=== PATIENT | female | born 1960 | race Caucasian/White ===

== ENCOUNTER → 2016-10-05 | Outpatient (CLI) | payer OTHER ==
[2016-10-05 08:32] LABS: Basophils # (A) 0.1 k/uL (0-0.2); Basophils % (A) 1 %; CH 31.8; CHCM 35.6; Eosinophils # (A) 0.2 k/uL (0-0.7); Eosinophils % (A) 3 %; HCT 40.2 % (34.0-46.0); HGB 14.2 gm/dL (11.4-16.0); Luc % (Auto) 1; Lymphocytes # (A) 1.9 k/uL (1.0-4.8); Lymphocytes % (A) 28 %; MCH 31.7 pg (25.0-35.0); MCHC 35.3 g/dL (31.0-37.0); MCV 89.6 fL (80.0-100.0); Mean Platelet Volume 7.7; Monocytes # (A) 0.2 k/uL (0-1.0); Monocytes % (A) 3 %; Neutrophils # (A) 4.3 k/uL (1.3-7.7); Neutrophils % (A) 64 %; RBC 4.49 m/uL (3.80-5.40); WBC 6.8 k/uL (3.8-10.6); WBC (Perox) 6.92
[2016-10-05 10:29] LABS: Erythrocyte Sedimentation Rate 39 mm/hr (0-20)
[2016-10-05 10:57] LABS: C Reactive Protein 8.8 mg/L (<10.0); Cholesterol 265 mg/dL (<200); Creatine Kinase 84 U/L (30-135); HDL Cholesterol 53 mg/dL (40-60); Rheumatoid Factor, Qnt <9 IU/mL (<12); Triglycerides 502 mg/dL (<150)
[2016-10-05 17:18] LABS: ANA w/Reflex to Titer NEGATIVE (NEGATIVE)
[2016-10-06 12:13] LABS: Alternaria alternata IgE <0.35 kU/L (<0.35); Asperg. fumagatus IgE <0.35 kU/L (<0.35); Asperg. fumagatus IgE Class CLASS 0; Birch(Com.Silvr) IgE Class CLASS 0; Cat Epith & Dander IgE <0.35 kU/L (<0.35); Cat Epith & Dander IgE Class CLASS 0; Clad herbarum IgE <0.35 kU/L (<0.35); Clad herbarum IgE Class CLASS 0; Common Ragweed IgE Class CLASS 0; Dermato. Pteronyssinus Class CLASS 0; Dermato. Pteronyssinus IgE <0.35 kU/L (<0.35); Dermato. farinae IgE <0.35 kU/L (<0.35); Dermato. farinae IgE Class CLASS 0; IgE (Allergen) 62.7 IU/mL (<114.0); Maple (Box Elder) IgE 2.09 kU/L (<0.35); Maple (Box Elder) IgE Class CLASS II; Mountain Cedar IgE <0.35 kU/L (<0.35); Mountain Cedar IgE Class CLASS 0; Mouse Urine IgE Class CLASS 0; Mouse Urine Proteins,IgE <0.35 kU/L (<0.35); Mulberry IgE Class CLASS 0; Nettle IgE <0.35 kU/L (<0.35); Nettle IgE Class CLASS 0; Oak IgE <0.35 kU/L (<0.35); Penicillium notatum IgE Class CLASS 0; Rough Marshelder IgE <0.35 kU/L (<0.35); Rough Marshelder IgE Class CLASS 0; Timothy Grass IgE <0.35 kU/L (<0.35); Timothy Grass IgE Class CLASS 0; White Ash IgE Class CLASS 0
== END | disposition home or self-care (01) ==
LOC: LABWHC1 07:26
PROVIDERS: ATTEND Internal Medicine
DX: Z00.00 Encounter for general adult medical examination without abnormal findings (principal); D64.9 Anemia, unspecified; E78.5 Hyperlipidemia, unspecified; E55.9 Vitamin D deficiency, unspecified; M35.9 Systemic involvement of connective tissue, unspecified; M81.0 Age-related osteoporosis without current pathological fracture; F17.200 Nicotine dependence, unspecified, uncomplicated
CPT/HCPCS: 36415; 80061; 82306; 82550; 82785; 84443; 85025; 85652; 86003; 86038; 86140; 86225; 86431

== ENCOUNTER → 2016-10-05 | Outpatient (CLI) | payer OTHER ==
[2016-10-05 08:39] LABS: Partial Thromboplastin Time 21.4 sec (22.0-30.0); Prothrombin Time 10.1 sec (9.0-12.0)
[2016-10-05 08:44] LABS: Appearance,Urine Cloudy (Clear); Bilirubin,Urine Negative (Negative); Glucose,Urine (UA) Negative (Negative); Ketones,Urine Negative (Negative); Leukocyte Esterase,Urine Small (Negative); Nitrite,Urine Negative (Negative); Particle Count 10049; Protein,Urine Negative (Negative); Specific Gravity,Urine 1.016 (1.001-1.035); Squamous Epithelial Cell,Urine 1 /hpf (0-4); UA Billing (MACRO vs. MICRO) MICRO; Urobilinogen,Urine <2.0 mg/dL (<2.0)
[2016-10-05 08:45] LABS: ALT 24 U/L (9-52); AST 20 U/L (14-36); Alkaline Phosphatase 104 U/L (38-126); Anion Gap 11 mmol/L; Blood Urea Nitrogen 21 mg/dL (7-17); Calcium 9.4 mg/dL (8.4-10.2); Carbon Dioxide 24 mmol/L (22-30); Chloride 107 mmol/L (98-107); Glucose 97 mg/dL (74-99); Non-African American GFR(MDRD) >60 (>60 ml/min/1.73 sqM); Potassium 4.1 mmol/L (3.5-5.1); Sodium 142 mmol/L (137-145); Total Bilirubin 0.5 mg/dL (0.2-1.3); Total Protein 7.5 g/dL (6.3-8.2)
== END | disposition home or self-care (01) ==
LOC: LABPAT 07:28
PROVIDERS: ATTEND Orthopaedic Surgery
DX: Z01.812 Encounter for preprocedural laboratory examination (principal)
CPT/HCPCS: 80053; 81001; 85610; 85730; 87070

== ENCOUNTER 2016-10-19 10:02 | Inpatient (IN) | payer OTHER ==
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
[2016-10-15 16:01] VITALS: BMI 38.9
[~2016-10-19 10:02] MED LIST: ACETAMINOPHEN TAB 500 MG TAB PO ONE; DEXAMETHASONE SOD PHOSPHATE 10 MG/ML 1 ML VIAL IV ONE; HYDROmorphone 1 MG/ML 1 ML SYRINGE IVP PRN; LACTATED RINGERS 1,000 ML IV SCH; MELOXICAM 7.5 MG TAB PO ONE; MIDAZOLAM 2 MG/2 ML VIAL IV PRN; ONDANSETRON 4 MG/2 ML VIAL IVP ONE; ROPIVACAINE 246.25 MG, EPINEPHrine 0.5 MG, KETOROLAC 30 MG, cloNIDine HCL/PF 80 MCG, WA... MISCELLANE ONE; SCOPOLAMINE 1.5MG/72HR PATCH TRANSDERM ONE; TRANEXAMIC ACID 1,000 MG in SODIUM CHLORIDE 0.9% 100 ML IVPB ONE; ceFAZolin 2 GM in SODIUM CHLORIDE 0.9% 100 ML IVPB ONE
[2016-10-19] MEDS ORDERED: LIDOCAINE 1% 20 ML VIAL (10MG/ML) FOR IV START INTRADERMA ONE (10:25)
[2016-10-19] MEDS ORDERED: ROPIVACAINE 1,100 MG, SODIUM CHLORIDE 0.9% 330 ML MISCELLANE PRN ×2 (11:17)
--- NOTE | 2016-10-19 11:19 | P.ONQ ---
Anesthesiology Proc Note - PNB - Peripheral Nerve Block Performed Left Adductor Canal Infusion Time Out Performed: Yes Indication: Acute Post-Operative Pain, Dx/Pain Location (Left Knee) Sedation Type: Sedate with meaningful contact maintained Preparation: Sterile Dressing Position: Supine Catheter: Indwelling Needle Types: Other (see comment) (Adal) Needle Size: 100mm (4") Technique: Ultrasound Injectate: 0.5% Ropivacaine (see comment for volume) (30cc) Blood Aspirated: No Pain Paresthesia on Injection Noted: No Resistance on Injection: Normal Events: Uneventful and Well Tolerated
[2016-10-19] MEDS ORDERED: TRANEXAMIC ACID 1,000 MG/10 ML VIAL ONE (11:55)
[2016-10-19] MEDS ORDERED: LIDOCAINE 1% INJ 10MG/ML (20 ML MDV) ONE (11:55)
[2016-10-19] MEDS ORDERED: MIDAZOLAM 2 MG/2 ML VIAL ONE (11:55)
[2016-10-19] MEDS ORDERED: PROPOFOL 10 MG/ML 20 ML VIAL IV ONE (11:55)
[2016-10-19] MEDS ORDERED: SODIUM CHLORIDE 0.9% 100 ML BAG ONE ×2 (11:55)
[2016-10-19] MEDS ORDERED: ceFAZolin 3,000 MG in SODIUM CHLORIDE 0.9% IRRIGATIO 3,000 ML IRRIGATION ONE (12:37)
[2016-10-19] MEDS ORDERED: LACTATED RINGERS 1,000 ML IV ONE (13:07)
--- NOTE | 2016-10-19 13:27 | P.OP ---
Date of Procedure: 10/19/16 Preoperative Diagnosis: Severe osteoarthritis of the left knee Postoperative Diagnosis: Severe osteoarthritis of the left knee Procedure(s) Performed: Left total knee arthroplasty Implants: Wang and Nephew Oxinium femoral component size 4, left Wang & Nephew Nancy II left nonporous tibial baseplate size 4 Wang [employer] Nephew size 13 mm Legion XLPE dished articular insert, size 3-4 Wang [employer] Nephew Nancy II resurfacing patellar component, 29 mm All components were cemented using Kapil bone cement.. The articulation is ceramic on polyethylene. Anesthesia: spinal Surgeon: Ramirez Flores Kiln Hand #1: Chio Graves Kiln Hand #2: Radha South Estimated Blood Loss (ml): 50 Pathology: other (Bone and cartilage) Condition: stable Disposition: PACU Indications for Procedure: After failure of conservative treatment we discussed the surgical and nonsurgical treatment options at length. Patient wishes to proceed with a total knee arthroplasty. Complications specific to this procedure were discussed at length, including but not limited to infection, bleeding, stiffness , and nerve injury. Patient is aware of all these complications and informed consent was obtained Operative Findings: The operative findings are consistent with severe osteoarthritis of the left knee Description of Procedure: Patient was seen in the preoperative area consent was reviewed and operative site was marked with a skin marker. An adductor canal pain catheter was placed by anesthesia in the preoperative area. Patient was then brought to the operating room and given preoperative antibiotics intravenously. A spinal anesthetic was administered by the anesthesia department. A tourniquet was placed on the upper thigh and the lower extremity was prepped and draped in usual sterile fashion. A gram of transexamic acid was given. A universal timeout was then performed which confirmed the patient's name, surgical site, ALLERGIES, and consent. The lower extremity was then exsanguinated and tourniquet was inflated to 250 mmHg. A standard and anterior midline approach to the knee was performed. The skin and subcutaneous tissue was dissected down to the patellar tendon. A medial parapatellar arthrotomy was then performed. The knee was then extended, the patellar was everted, and the knee was again flexed. Anterior horns of both menisci were excised, and a release was performed to the posterior medial aspect of the knee. On gross visual inspection, there was complete loss of articular cartilage in the medial and patellofemoral joint spaces. There was also significant cartilage damage in the lateral compartment. There were multiple periarticular osteophytes which were then removed with a Ronguer. The femoral canal was then opened with the appropriate drill, and the intramedullary femoral cutting guide was then placed and set for 4 of valgus. The distal femoral cutting block was then pinned in place, and the distal femur was then cut. The cutting block was then removed and the cut was checked for flatness. Next, the sizing guide was then placed and set for 3 external rotation based off of the epicondylar axis and Whitesides line. After the femur was sized, the appropriate 4-in-1 cutting block was then pinned in place. The anterior condyles were cut without notching. The posterior and chamfer cuts were performed while protecting the collateral ligaments. The cutting block was then removed, and the femoral canal was plugged with autologous bone. Attention was then directed to the tibia. The remaining ACL was removed with a Ronguer, and the tibia was then gently subluxed forward with a large bent knee retractor. Any remaining menisci was excised. The posterior lateral corner was cauterized in order to cauterize the lateral geniculate artery. The extra medullary tibial cutting guide was then placed, set for the appropriate rotation , slope, and depth of resection. The proximal tibia cutting guide was then pinned in place. Proximal tibia was then cut and sized. Next trials were then placed with the appropriate-sized insert. The knee was able to fully extend and flex to 130 and was stable throughout all range of motion. The knee was then extended, patella everted. Patella was then measured, and then using an osteotomy guide, the patella was cut at the appropriate level. The patella was then measured and drilled and the patella trial was then placed. The knee was then taken through range of motion with the patella trial and the patella tracked normally. The knee was then extended patella trial was then removed and the patella was everted. Knee was then flexed and lug holes were drilled through the femoral trial and the femoral trial was then removed. The tibial was then exposed, and the tibial broach guide was then pinned in place after it was set for the appropriate rotation to allow for the most coverage without overhang. The tibia was then reamed and broached. The cut surfaces of bone were then irrigated with pulsatile lavage. The posterior structures were injected with the ropivacaine solution. The knee was also irrigated with Irrisept solution. The components were then opened, the cement was mixed, and the components were then cemented in place. The cement was allowed to harden with the knee in full extension. While the cement was hardening, the remaining soft tissues were then injected with a ropivacaine solution, which consisted of 246.25 mg of ropivacaine, 0.5 mg of epinephrine, 30 mg of Toradol, 80 g of clonidine, and 48.45 mL of sterile water, for a total of 100 mL of fluid injected. After the cemented hardened. The tourniquet was released, and hemostasis was obtained. A second gram of transexamic acid was given. The knee was again irrigated. The knee was again taken through range of motion and found to be stable throughout all range of motion of 0-130 , and the patella tracked normally. The fascia was then closed with #2 strata fix suture. The subcutaneous tissue was closed with 3-0 Vicryl and 3-0 strata fix. Dermabond tape was used for the skin and placed with the knee in flexion. The patient was placed in a sterile dressing. Patient was then transferred to recovery room in stable condition. The library media assistant KAMAR Woods was required due the complexity surgery and the need for a skilled talent acquisition assistant. She assisted in positioning, draping , retraction, and closure of the wound.
[2016-10-19] MEDS ORDERED: NA PHOS,M-B/NA PHOS,DI-BA 133 ML ENEMA RECTAL PRN (13:35)
[2016-10-19] MEDS ORDERED: DIAZEPAM 5 MG TAB PO PRN ×2 (13:35)
[2016-10-19] MEDS ORDERED: MAGNESIUM HYDROXIDE 2,400 MG/10 ML CUP PO PRN (13:35)
[2016-10-19] MEDS ORDERED: BISACODYL 10 MG SUPP RECTAL PRN (13:35)
[2016-10-19] MEDS ORDERED: ONDANSETRON 4 MG/2 ML VIAL IVP PRN (13:35)
[2016-10-19] MEDS ORDERED: HYDROcodone/APAP 5-325MG 1 EACH TAB PO PRN (13:35)
[2016-10-19] MEDS ORDERED: HYDROmorphone 1 MG/ML 1 ML SYRINGE IVP PRN ×3 (13:35)
[2016-10-19] MEDS ORDERED: NALOXONE 0.4 MG/ML 1 ML VIAL IV PRN (13:35)
[2016-10-19] MEDS ORDERED: SODIUM CHLORIDE 0.9% 1,000 ML IV SCH (13:45)
--- NOTE | 2016-10-19 14:06 | XR ---
Left knee Limited HISTORY: Status post left knee arthroplasty 2 views of the left knee, no comparisons The patient is status post left knee arthroplasty. Anatomic alignment. The present in the soft tissue s compatible with postop state. IMPRESSION: Orthopedic follow-up.
[2016-10-19] MEDS ORDERED: ALBUTEROL NEBULIZED 2.5 MG/3 ML INHALATION PRN (15:46)
[2016-10-19] MEDS ORDERED: ACETAMINOPHEN TAB 325 MG TAB PO PRN (16:37)
[2016-10-19] MEDS: HYDROcodone/APAP 5-325MG 1 EACH TAB PO PRN ×2 (17:48→23:43)
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
[2016-10-19] MEDS: GABAPENTIN 400 MG CAP PO SCH ×2 (17:52→22:08)
[2016-10-19] MEDS: SODIUM CHLORIDE 0.9% 1,000 ML IV SCH (18:07)
[2016-10-19 20:17] VITALS: RESP 16
[2016-10-19] MEDS: ASPIRIN 325 MG TAB PO SCH (20:20)
[2016-10-19] MEDS: ceFAZolin 2 GM in SODIUM CHLORIDE 0.9% 100 ML IVPB SCH (20:20)
[2016-10-19] MEDS: ATORVASTATIN 80 MG TAB PO SCH (20:21)
[2016-10-19] MEDS: SENNOSIDES-DOCUSATE SODIUM 1 EACH TAB PO SCH (20:21)
[2016-10-19] MEDS: FENOFIBRATE 160 MG TAB PO SCH (20:21)
[2016-10-19] MEDS: hydrOXYzine PAMOATE 25 MG CAP PO PRN (23:43)
[2016-10-20] MEDS: ceFAZolin 2 GM in SODIUM CHLORIDE 0.9% 100 ML IVPB SCH (03:49)
[2016-10-20] MEDS: HYDROcodone/APAP 5-325MG 1 EACH TAB PO PRN ×3 (06:39→18:14)
[2016-10-20] MEDS: hydrOXYzine PAMOATE 25 MG CAP PO PRN ×3 (06:40→18:14)
[2016-10-20 07:24] LABS: Basophils % (A) 0 %; CH 31.3; Eosinophils % (A) 0 %; HCT 36.4 % (34.0-46.0); HDW 2.88; HGB 12.1 gm/dL (11.4-16.0); Luc # (Auto) 0.14; Luc % (Auto) 1; Lymphocytes # (A) 2.3 k/uL (1.0-4.8); Lymphocytes % (A) 22 %; MCH 29.9 pg (25.0-35.0); MCHC 33.3 g/dL (31.0-37.0); MCV 89.6 fL (80.0-100.0); Monocytes # (A) 0.6 k/uL (0-1.0); Monocytes % (A) 6 %; Neutrophils # (A) 7.2 k/uL (1.3-7.7); Neutrophils % (A) 71 %; RBC 4.06 m/uL (3.80-5.40); RDW 13.1 % (11.5-15.5); WBC 10.1 k/uL (3.8-10.6); WBC (Perox) 10.37
[2016-10-20] MEDS: SERTRALINE 50 MG TAB PO SCH ×2 (07:57→07:58)
[2016-10-20] MEDS: PANTOPRAZOLE 40 MG TABLET PO SCH (07:57)
[2016-10-20] MEDS: GABAPENTIN 400 MG CAP PO SCH ×3 (07:58→22:07)
[2016-10-20] MEDS: ASPIRIN 325 MG TAB PO SCH ×2 (07:58→22:06)
[2016-10-20] MEDS: MELOXICAM 7.5 MG TAB PO SCH (07:58)
--- NOTE | 2016-10-20 08:57 | P.PN ---
Subjective Principal diagnosis: Status post total left knee arthroplasty. This is a well-appearing 56-year-old female who is status post total left knee arthroplasty. This is postoperative day #1. Patient was seen and evaluated at bedside with Dr. Ramirez Flores. Patient's pain is under control and she has been up and walking. Patient has no new complaints today. Objective - Vital Signs Vital signs: Vital Signs Temp 97.8 F 10/20/16 07:31 Pulse 69 10/20/16 08:00 Resp 16 10/20/16 07:31 BP 114/75 10/20/16 07:31 Pulse Ox 94 L 10/20/16 07:31 Intake & Output 10/19/16 10/20/16 10/20/16 18:59 06:59 18:59 Intake Total 1201 Output Total 350 Balance 851 Intake: IV 1201 Output: Urine 300 Estimated Blood Loss 50 Other: Voiding Method Toilet Toilet # Voids 1 1 - Exam Vital signs are stable. Patient is in no acute distress and is alert and oriented 3. Calf is soft and nontender. Incision is clean, dry, and intact. Neurovascular status intact. Patient has full foot and ankle motion. Patient is able to ambulate. - Labs CBC & Chem 7: 10/20/16 06:55 Assessment and Plan (1) Hx of total knee arthroplasty Status: Acute (2) Primary osteoarthritis of left knee Status: Acute Plan: #1 continue with routine postoperative care. #2 anticoagulation with aspirin. #3 physical therapy and CPM today. #4 appreciated input from medicine. #5 anticipate discharged home with home care likely tomorrow.
[2016-10-20] MEDS ORDERED: NON-FORMULARY DRUG (Calcium/Magnesium/Zinc [Calcium-Magnesium-Zinc Tablet] 1 TAB) PO SCH (09:00)
[2016-10-20] MEDS ORDERED: CHOLECALCIFEROL 1,000 UNIT TAB PO SCH (12:00)
[2016-10-20] MEDS ORDERED: CYANOCOBALAMIN 500 MCG TAB PO SCH (12:00)
--- NOTE | 2016-10-20 16:16 | P.PN ---
Subjective Dictation on progress note. Date of service 10/20/2016. Dictation by Dr. Nina Mistry [facility]. Patient seen today evaluated. She stated that she went home tomorrow. Orthopedic surgeon. Her left knee doing well no complication she had history of sciatica in the using ice. Otherwise she is comfortable for the planning and discharge. No specific complaint. Exam [id number]. Patient is conscious alert and oriented 3. HEENT: Head was normocephalic atraumatic, pupils equal reactive, oropharynx is negative, Neck: Supple no JVD no thyromegaly no lymphadenopathy trachea midline. Chest: Clear to auscultation and percussion no wheezes no rhonchi. Heart: Regular sinus rhythm and no dysrhythmia no pain of the chest. Abdomen soft positive bowel sounds no tenderness. Extremities: Status post left total knee arthroplasty with no obvious complication. Pulses intact with good perfusion. Neuro: Moving 4 extremities no lateralizing sign. Assessment and plan: Status post left total knee arthroplasty. By Dr. Ramirez dickson. Advanced degenerative osteoarthritis with the previous right total knee arthroplasty. Dyslipidemia and vitamin D insufficiency. She had history of hypertension however she has normotensive on the low side with a change of IV fluid 0.9 normal saline normal saline, her blood pressure improved. Dr. Flores plan for discharge her tomorrow home. Patient should be followed up in the office in 5-7 days post discharge. Objective - Vital Signs Vital signs: Vital Signs Temp 98.2 F 10/20/16 13:57 Pulse 60 10/20/16 13:57 Resp 16 10/20/16 13:57 BP 109/69 10/20/16 13:57 Pulse Ox 95 10/20/16 13:57 Intake & Output 10/19/16 10/20/16 10/20/16 18:59 06:59 18:59 Intake Total 1201 Output Total 350 Balance 851 Intake: IV 1201 Output: Urine 300 Estimated Blood Loss 50 Other: Voiding Method Toilet Toilet # Voids 1 1 1 - Labs CBC & Chem 7: 10/20/16 06:55
[2016-10-20] MEDS: SODIUM CHLORIDE 0.9% 1,000 ML IV SCH (17:57)
--- NOTE | 2016-10-20 18:17 | P.PN ---
Progress Note - Text The patient is status post left adductor canal catheter placement. The catheter was placed for postoperative pain control, status post total left arthroplasty. Ropivacaine 0.2% is infusing at 8 mLs per hour. The patient has no complaints of left lower extremity numbness or weakness. Patient's VAS score is 3-10. Assessment: Patient's adductor canal catheter is in place and working appropriately. Plan: continue infusion and adjust it as needed.
[2016-10-20] MEDS: ATORVASTATIN 80 MG TAB PO SCH (22:06)
[2016-10-20] MEDS: SENNOSIDES-DOCUSATE SODIUM 1 EACH TAB PO SCH (22:07)
[2016-10-20] MEDS: FENOFIBRATE 160 MG TAB PO SCH (22:07)
[2016-10-21] MEDS: HYDROcodone/APAP 5-325MG 1 EACH TAB PO PRN ×2 (02:08→08:12)
[2016-10-21] MEDS: hydrOXYzine PAMOATE 25 MG CAP PO PRN ×2 (02:09→08:11)
[2016-10-21 07:24] VITALS: BP 104/65; PULSE 85; TEMP 98.1
[2016-10-21] MEDS: GABAPENTIN 400 MG CAP PO SCH (08:32)
[2016-10-21] MEDS: ASPIRIN 325 MG TAB PO SCH (08:32)
[2016-10-21] MEDS: PANTOPRAZOLE 40 MG TABLET PO SCH (08:32)
[2016-10-21] MEDS: MELOXICAM 7.5 MG TAB PO SCH (08:32)
--- NOTE | 2016-10-21 08:40 | P.DS ---
Providers Date of admission: 10/19/16 10:02 Expected date of discharge: 10/21/16 Attending physician: Ramirez Flores Consults: 10/19/16 13:35 Consult Physician Routine Consulting Provider: Misael Wood Consult Reason/Comments: medical management Do you want consulting provider notified?: Yes Primary care physician: Misael Wood - Discharge Diagnosis(es) (1) Hx of total knee arthroplasty Current Visit: Yes Status: Acute (2) Primary osteoarthritis of left knee Current Visit: Yes Status: Acute Hospital Course: This is a 56-year-old female with known history of degenerative arthritis of the left knee. The patient presents for evaluation. After discussion and consideration patient elects to proceed with total knee arthroplasty. The patient is seen preoperatively by Dr. Flores and cleared for surgery. Patient is [facility] on 10/19/2016 for total knee arthroplasty. The procedures performed without complication or sequelae. The patient is doing well postoperatively. Labs and vital signs are stable on day of discharge. On day of discharge patient's knee incision is healing well. There is minimal erythema. There is no drainage noted at this time. There is minimal soft tissue swelling to the knee. Patient has full foot and ankle motion without difficulty or pain. Neurovascular status to the left lower extremity is intact. Patient is discharged home in good condition. Please see med rec for accurate list of home medications. Plan - Discharge Summary New Discharge Prescriptions: New Aspirin 325 mg PO BID #60 tab HYDROcodone/APAP 7.5-325MG [Hemlock 7.5-325] 1 - 2 tab PO Q4-6H PRN #60 tab PRN Reason: Pain Sennosides-Docusate Sodium [Senokot-S] 1 tab PO BID #60 tablet No Action Omeprazole 40 mg PO AC-BRKFST Atorvastatin [Lipitor] 80 mg PO HS Sertraline HCl [Zoloft] 50 mg PO DAILY Ibuprofen [Motrin] 800 mg PO Q8HR PRN PRN Reason: Pain Gabapentin [Neurontin] 400 mg PO TID Fenofibrate 160 mg PO HS Meloxicam [Meloxicam] 15 mg PO DAILY Cyanocobalamin [Vitamin B-12] 500 mcg PO DAILY Cholecalciferol [Vitamin D3] 1,000 unit PO DAILY Calcium/Magnesium/Zinc [Oaocbhu-Xkhwmhwds-Vsey Tablet] 1 tab PO DAILY Albuterol Inhaler [Ventolin Hfa Inhaler] 1 - 2 puff INHALATION RT-Q6H PRN PRN Reason: asthma Discharge Medication List Atorvastatin [Lipitor] 80 mg PO HS 10/08/14 [History] Omeprazole 40 mg PO AC-BRKFST 10/08/14 [History] Sertraline HCl [Zoloft] 50 mg PO DAILY 10/08/14 [History] Calcium/Magnesium/Zinc [Jifhnos-Hkuaxqozw-Ewuw Tablet] 1 tab PO DAILY 04/15/16 [ History] Cholecalciferol [Vitamin D3] 1,000 unit PO DAILY 04/15/16 [History] Cyanocobalamin [Vitamin B-12] 500 mcg PO DAILY 04/15/16 [History] Fenofibrate 160 mg PO HS 04/15/16 [History] Gabapentin [Neurontin] 400 mg PO TID 04/15/16 [History] Ibuprofen [Motrin] 800 mg PO Q8HR PRN 04/15/16 [History] Meloxicam [Meloxicam] 15 mg PO DAILY 04/15/16 [History] Albuterol Inhaler [Ventolin Hfa Inhaler] 1 - 2 puff INHALATION RT-Q6H PRN [History] Aspirin 325 mg PO BID #60 tab 10/21/16 [Rx] HYDROcodone/APAP 7.5-325MG [Hemlock 7.5-325] 1 - 2 tab PO Q4-6H PRN #60 tab [Rx] Sennosides-Docusate Sodium [Senokot-S] 1 tab PO BID #60 tablet 10/21/16 [Rx] Follow up Appointment(s)/Referral(s): [facility] Vis[facility] Nurse, [NON-STAFF] - As Needed Ramirez Flores DO [Doctor of Osteopathic Medicine] - 2 Weeks Ambulatory/Diagnostic Orders: Continuous Passive Motion (CPM) Machine [DME.AMB1] Time Frame: 2 Weeks, Location : Determined By Patient Activity/Diet/Wound Care/Special Instructions: Weightbearing as tolerated with a walker CPM 5-6h daily Daily dressing changes, keep incision clean and dry May shower if no drainage from incision Call [facility] with questions or concerns [phone] Discharge Disposition: HOME WITH HOME HEALTH SERVICES
--- NOTE | 2016-10-21 11:03 | P.PN ---
Progress Note - Text The patient is status post left adductor canal catheter placement. The catheter was placed for postoperative pain control, status post total left arthroplasty. Ropivacaine 0.2% is infusing at 8 mLs per hour. The patient has no complaints of left lower extremity numbness or weakness. Patient's VAS score is2-10. Assessment: Patient's adductor canal catheter is in place and working appropriately. Plan: continue infusion and adjust it as needed.
== END 2016-10-21 12:54 | disposition home health service (06) | DRG 470 ==
LOC: 2ORMAIN 10:02 → 3SUR 13:34
PROVIDERS: ADMIT Orthopaedic Surgery; ATTEND Orthopaedic Surgery
PROC: 0SRD0J9 Replacement of Left Knee Joint with Synthetic Substitute, Cemented, Open Approach (ICD-10-PCS; principal; 2016-10-19 11:30)
DX: M17.12 Unilateral primary osteoarthritis, left knee (principal); I10 Essential (primary) hypertension; E55.9 Vitamin D deficiency, unspecified; E78.5 Hyperlipidemia, unspecified; F32.9 Major depressive disorder, single episode, unspecified; G89.29 Other chronic pain; J44.9 Chronic obstructive pulmonary disease, unspecified; K21.9 Gastro-esophageal reflux disease without esophagitis; M54.30 Sciatica, unspecified side; Z79.899 Other long term (current) drug therapy; Z82.49 Family history of ischemic heart disease and other diseases of the circulatory system; Z87.891 Personal history of nicotine dependence
CPT/HCPCS: 85025; 88300

== ENCOUNTER → 2016-12-29 | Outpatient (CLI) | payer OTHER ==
[2016-12-29 12:31] LABS: ALT 39 U/L (9-52); AST 27 U/L (14-36); Blood Urea Nitrogen 17 mg/dL (7-17); Non-African American GFR(MDRD) >60 (>60 ml/min/1.73 sqM)
== END | disposition home or self-care (01) ==
LOC: LABWHC1 12:01
PROVIDERS: ATTEND Psychiatry & Neurology Neurology
DX: M19.90 Unspecified osteoarthritis, unspecified site (principal)
CPT/HCPCS: 36415; 82565; 84450; 84460; 84520

== ENCOUNTER → 2017-02-01 | Outpatient (CLI) | payer OTHER ==
[2017-02-01 09:17] LABS: Basophils % (A) 1 %; CH 30.5; CHCM 35.9; Eosinophils # (A) 0.3 k/uL (0-0.7); Eosinophils % (A) 5 %; HCT 37.4 % (34.0-46.0); HGB 13.3 gm/dL (11.4-16.0); Luc # (Auto) 0.11; Luc % (Auto) 2; Lymphocytes # (A) 2.3 k/uL (1.0-4.8); Lymphocytes % (A) 37 %; MCH 30.5 pg (25.0-35.0); MCHC 35.7 g/dL (31.0-37.0); MCV 85.3 fL (80.0-100.0); Mean Platelet Volume 7.9; Monocytes # (A) 0.3 k/uL (0-1.0); Monocytes % (A) 5 %; Neutrophils # (A) 3.1 k/uL (1.3-7.7); Neutrophils % (A) 51 %; RBC 4.38 m/uL (3.80-5.40); RDW 13.4 % (11.5-15.5); WBC 6.1 k/uL (3.8-10.6); WBC (Perox) 6.33
[2017-02-01 10:36] LABS: ALT 35 U/L (9-52); AST 24 U/L (14-36); Alkaline Phosphatase 101 U/L (38-126); Anion Gap 9 mmol/L; Blood Urea Nitrogen 24 mg/dL (7-17); C Reactive Protein 8.1 mg/L (<10.0); Calcium 9.6 mg/dL (8.4-10.2); Carbon Dioxide 25 mmol/L (22-30); Chloride 107 mmol/L (98-107); Cholesterol 185 mg/dL (<200); Creatine Kinase 149 U/L (30-135); Glucose 91 mg/dL (74-99); HDL Cholesterol 59 mg/dL (40-60); Magnesium 2.1 mg/dL (1.6-2.3); Non-African American GFR(MDRD) >60 (>60 ml/min/1.73 sqM); Sodium 141 mmol/L (137-145); Total Bilirubin 0.4 mg/dL (0.2-1.3); Uric Acid 4.4 mg/dL (3.7-7.4)
[2017-02-01 11:09] LABS: Hemoglobin A1C 5.5 % (4.2-6.1)
[2017-02-01 12:27] LABS: Erythrocyte Sedimentation Rate 26 mm/hr (0-20)
== END | disposition home or self-care (01) ==
LOC: LABWHC1 08:31
PROVIDERS: ATTEND Internal Medicine
DX: Z00.00 Encounter for general adult medical examination without abnormal findings (principal); E78.5 Hyperlipidemia, unspecified; E55.9 Vitamin D deficiency, unspecified; J45.909 Unspecified asthma, uncomplicated; M54.32 Sciatica, left side
CPT/HCPCS: 36415; 80053; 80061; 82306; 82550; 83036; 83735; 84439; 84443; 84550; 85025; 85652; 86140

== ENCOUNTER 2017-07-23 19:02 | Emergency (ER) | payer OTHER ==
[2017-07-23 19:13] VITALS: RESP 18
--- NOTE | 2017-07-23 19:53 | ED ---
Fall HPI - General Chief Complaint: Fall Stated Complaint: Fall Time Seen by Provider: 07/23/17 19:31 Source: patient, EMS, RN notes reviewed Mode of arrival: EMS - History of Present Illness Initial Comments: This is a 57-year-old female who presents to the emergency department via EMS with chief complaint of fall. Patient states that 1 hour prior to arrival she was in a parking lot. She states that her heels hit the curb and she fell backwards landing onto her butt and back. Patient denies any head or neck injury. She denies being on any blood thinners. Patient complains of tailbone and low back pain. She states that patient is made worse by sitting forward. She states that she has an extensive history of low back and hip issues including arthritis and sciatica. Patient also complains of left wrist pain. She states that she has broken it 2 times in the past. Denies any other injuries or trauma. Denies fever, chills, chest pain, shortness of breath, abdominal pain, nausea or vomiting, constipation or diarrhea, dysuria or hematuria, numbness or tingling, headache or vision changes. - Related Data Home Medications Medication Instructions Recorded Confirmed Atorvastatin [Lipitor] 80 mg PO HS 10/08/14 10/19/16 Omeprazole 40 mg PO AC-BRKFST 10/08/14 10/19/16 Sertraline HCl [Zoloft] 50 mg PO DAILY 10/08/14 10/19/16 Calcium/Magnesium/Zinc 1 tab PO DAILY 04/15/16 10/19/16 [Xqwrydd-Gzhwjgwig-Gsal Tablet] Cholecalciferol [Vitamin D3] 1,000 unit PO DAILY 04/15/16 10/19/16 Cyanocobalamin [Vitamin B-12] 500 mcg PO DAILY 04/15/16 10/19/16 Fenofibrate 160 mg PO HS 04/15/16 10/19/16 Gabapentin [Neurontin] 400 mg PO TID 04/15/16 10/19/16 Ibuprofen [Motrin] 800 mg PO Q8HR PRN 04/15/16 10/19/16 Meloxicam [Meloxicam] 15 mg PO DAILY 04/15/16 10/19/16 Albuterol Inhaler [Ventolin Hfa 1 - 2 puff INHALATION RT-Q6H PRN 10/15/16 Inhaler] Previous Rx's Medication Instructions Recorded Aspirin 325 mg PO BID #60 tab 10/21/16 HYDROcodone/APAP 7.5-325MG [Orange 1 - 2 tab PO Q4-6H PRN #60 tab 10/21/16 7.5-325] Sennosides-Docusate Sodium 1 tab PO BID #60 tablet 10/21/16 [Senokot-S] Allergies Allergy/AdvReac Type Severity Reaction Status Date / Time No Known Allergies Allergy Verified 07/23/17 19:10 Review of Systems ROS Statement: Those systems with pertinent positive or pertinent negative responses have been documented in the HPI. ROS Other: All systems not noted in ROS Statement are negative. Past Medical History Past Medical History: Asthma Additional Past Medical History / Comment(s): RECENT YEAST INFECTION FINISHED RX ON [id number] History of Any Multi-Drug Resistant Organisms: None Reported Past Surgical History: Hysterectomy, Joint Replacement, Tonsillectomy Additional Past Surgical History / Comment(s): RIGHT KNEE REPLACEMENT X2 , RIGHT KNEE ARTHROSCOPIC, SKIN GRAFTS,RIGHT ANKLE ORIF. COLONOSCOPY, TOTAL RT KNEE Past Anesthesia/Blood Transfusion Reactions: No Reported Reaction Past Psychological History: Anxiety, Depression Smoking Status: Former smoker Past Alcohol Use History: Rare Past Drug Use History: None Reported - Past Family History Mother Family Medical History: GERD/Reflux, Hyperlipidemia, Hypertension Father Family Medical History: Cancer Additional Family Medical History / Comment(s): LUNG CANCER General Exam - General Exam Comments Initial Comments: General: Awake and alert, well-developed; in no apparent distress. HEENT: Head atraumatic, normocephalic. Pupils are equal, round and reactive to light. Extraocular movements intact. Oropharynx moist without erythema or exudate. Neck: Supple. Normal ROM. Cardiovascular: Regular rate and rhythm. No murmurs, rubs or gallops. Chest symmetrical. Respiratory: Lungs clear to auscultation bilaterally. No wheezes, rales or rhonchi. Normal respiratory effort with no use of accessory muscles. Abdomen: Soft, non-tender, non-distended. No rigidity, rebound or guarding. Normal bowel sounds in all 4 quadrants. Musculoskeletal: Normal range of motion of the left wrist. There is mild bruising and swelling noted to the radial ventral surface left wrist. Radial pulses are 2+ equal and palpable bilaterally. Normal range of motion of the spine. There is tenderness on palpation of mid lumbar spine and sacrum. Patient is able to bear weight and ambulate normally. Skin: [place], warm and dry without rashes or lesions. Neurological: Alert and oriented x3. CN II-XII grossly intact. Speech is fluent and answers are appropriate. No focal neuro deficits. Psychiatric: Normal mood and affect. No overt signs of depression or anxiety noted. Limitations: no limitations Course Vital Signs 07/23/17 07/23/17 19:10 20:29 Temperature 97.5 F L 98.7 F Pulse Rate 80 84 Respiratory 18 18 Rate Blood Pressure 123/85 144/75 O2 Sat by Pulse 97 99 Oximetry Procedures - Orthopedic Splinting/Casting Injury #1 Side: left Upper Extremity Injury Location: wrist Upper Extremity Immobilizer: volar splint, synthetic pre-padded splint Medical Decision Making - Medical Decision Making This is a 57-year-old female who presents to the emergency department for evaluation following a fall. Patient complained of left wrist, low back and tailbone pain. X-rays of these areas revealed no evidence for acute fractures or dislocations. Patient is able to bear weight and ambulate. Patient denied any head or neck injury. She denies being on any blood thinners. Patient has no other complaints. Vital signs are stable and patient is in no acute distress. Likely suffering from contusions of sacrum and low back. I review of wrist x-ray with Dr. Montanez, there was a slight abnormality seen. Patient has a history of fracturing this left wrist twice in the past, however unable to verify if this abnormality is from that. A short arm volar OCL splint was placed and patient tolerated well without complication. She is neurovascularly intact. Recommended wearing for a week and then to remove herself. If patient is still experiencing pain she is to follow-up with orthopedics. Patient will be discharged home. Return parameters were discussed. Patient is in agreement with plan and voices understanding. All questions were answered. - Radiology Data Radiology results: report reviewed Left wrist x-ray impression: There is no acute fracture or dislocation in the left wrist. Lumbar spine x-ray impression: No acute fracture or dislocation is seen in the lumbar spine. Pelvis x-ray impression: There is no acute fracture or dislocation in the pelvis. Sacrum and coccyx x-ray impression: No acute displaced sacral or coccygeal fracture is seen. Disposition Clinical Impression: Fall, Sacral contusion, Left wrist injury Disposition: HOME SELF-CARE Condition: Good Instructions: Wrist Injury (ED), Coccyx Injury (ED), Acute Low Back Pain (ED) Additional Instructions: Please remove left wrist splint in 1 week. If you are still experiencing pain, please follow-up with [facility]. May take Tylenol or Motrin as needed for pain. Please follow up with primary care provider within 1-2 days. Return to emergency department if symptoms should worsen or any concerns arise. Referrals: Kusum Glass MD [Primary Care Provider] - 1-2 days Time of Disposition: 20:31
--- NOTE | 2017-07-23 20:05 | XR ---
EXAMINATION TYPE: XR wrist complete LT DATE OF EXAM: 07/23/2017 CLINICAL HISTORY: Left wrist pain after falling injury. TECHNIQUE: Frontal, lateral, scaphoid, and oblique images of the left wrist are obtained. COMPARISON: None FINDINGS: There is no acute fracture/dislocation evident in the left wrist. There is mild joint spac e loss and spurring of base of first metacarpal. The overlying soft tissue appears unremarkable. IMPRESSION: There is no acute fracture or dislocation in the left wrist.
--- NOTE | 2017-07-23 20:06 | XR ---
EXAMINATION TYPE: XR lumbar spine 2 or 3V DATE OF EXAM: 07/23/2017 CLINICAL HISTORY: Low-back pain after falling injury. TECHNIQUE: Frontal and lateral images of the lumbar spine are obtained. COMPARISON: None FINDINGS: There are 5 lumbar type vertebral bodies identified. The lumbar spine shows satisfactory alignment without evidence of acute fracture or dislocation. Vertebral body heights are within normal limits. There is mild disc space narrowing and anterior spurring L4-L5 and L5-S1 levels. The overlyi ng soft tissue appears unremarkable. IMPRESSION: No acute fracture or dislocation is seen in the lumbar spine.
--- NOTE | 2017-07-23 20:07 | XR ---
EXAMINATION TYPE: XR pelvis AP view DATE OF EXAM: 07/23/2017 CLINICAL HISTORY: Pelvic pain after fall injury. TECHNIQUE: A single AP view of the pelvis is obtained. COMPARISON: None. FINDINGS: There is no acute fracture/dislocation evident in the pelvis. The sacroiliac joints appea r symmetric and unremarkable. There is fairly moderate axial joint space loss in both hips. The over lying soft tissue appears unremarkable. IMPRESSION: There is no acute fracture or dislocation in the pelvis.
--- NOTE | 2017-07-23 20:08 | XR ---
EXAMINATION TYPE: XR sacrum coccyx DATE OF EXAM: 07/23/2017 COMPARISON: NONE HISTORY: Sacral and coccygeal pain after fall injury. TECHNIQUE: 2 views of sacrum and coccyx are acquired. FINDINGS: There is no acute displaced sacral or coccygeal fracture is seen. Sacroiliac joints are marquis ntained. Sacral alae are intact. Overlying soft tissue is unremarkable. IMPRESSION: No acute displaced sacral or coccygeal fracture is seen.
[2017-07-23 20:30] VITALS: BP 144/75; PULSE 84; TEMP 98.7
== END 2017-07-23 20:34 | disposition home or self-care (01) ==
LOC: EC 19:02
DX: S60.212A Contusion of left wrist, initial encounter (principal); S30.0XXA Contusion of lower back and pelvis, initial encounter; F41.9 Anxiety disorder, unspecified; F32.9 Major depressive disorder, single episode, unspecified; Z87.891 Personal history of nicotine dependence; Z96.651 Presence of right artificial knee joint; Z79.1 Long term (current) use of non-steroidal anti-inflammatories (NSAID); Z79.899 Other long term (current) drug therapy; W01.0XXA Fall on same level from slipping, tripping and stumbling without subsequent striking against object, initial encounter; Y92.481 Parking lot as the place of occurrence of the external cause
CPT/HCPCS: 29125; 72100; 72170; 72220; 99284

== ENCOUNTER → 2018-02-20 | Outpatient (CLI) | payer OTHER ==
[2018-02-20 07:19] LABS: Basophils % (A) 1 %; Eosinophils # (A) 0.2 k/uL (0-0.7); Eosinophils % (A) 3 %; HCT 42.7 % (34.0-46.0); HGB 14.6 gm/dL (11.4-16.0); Lymphocytes # (A) 1.9 k/uL (1.0-4.8); Lymphocytes % (A) 34 %; MCH 30.3 pg (25.0-35.0); MCHC 34.1 g/dL (31.0-37.0); MCV 88.8 fL (80.0-100.0); Monocytes # (A) 0.3 k/uL (0-1.0); Monocytes % (A) 5 %; Neutrophils # (A) 3.3 k/uL (1.3-7.7); Neutrophils % (A) 57 %; Platelet Count 203 k/uL (150-450); RDW 13.2 % (11.5-15.5); WBC 5.8 k/uL (3.8-10.6)
[2018-02-20 07:44] LABS: ALT 22 U/L (9-52); AST 24 U/L (14-36); Albumin 4.6 g/dL (3.5-5.0); Alkaline Phosphatase 77 U/L (38-126); Anion Gap 7 mmol/L; Blood Urea Nitrogen 19 mg/dL (7-17); Calcium 9.8 mg/dL (8.4-10.2); Carbon Dioxide 28 mmol/L (22-30); Chloride 108 mmol/L (98-107); Cholesterol 238 mg/dL (<200); Creatine Kinase 124 U/L (30-135); Glucose 93 mg/dL (74-99); HDL Cholesterol 69 mg/dL (40-60); LDL Cholesterol,Calculated 114 mg/dL (0-99); Potassium 4.3 mmol/L (3.5-5.1); Sodium 143 mmol/L (137-145); Total Bilirubin 0.4 mg/dL (0.2-1.3); Total Protein 7.6 g/dL (6.3-8.2); Triglycerides 273 mg/dL (<150)
[2018-02-20 13:02] LABS: C Reactive Protein <5.0 mg/L (<10.0)
[2018-02-20 14:41] LABS: Erythrocyte Sedimentation Rate 25 mm/hr (0-20)
== END | disposition home or self-care (01) ==
LOC: LABMAIN 06:12
PROVIDERS: ATTEND Internal Medicine
DX: D64.9 Anemia, unspecified (principal); E87.8 Other disorders of electrolyte and fluid balance, not elsewhere classified; M10.9 Gout, unspecified; E78.5 Hyperlipidemia, unspecified; I10 Essential (primary) hypertension; E55.9 Vitamin D deficiency, unspecified; M81.0 Age-related osteoporosis without current pathological fracture
CPT/HCPCS: 36415; 80053; 80061; 82306; 82550; 84443; 84550; 85025; 85652; 86140

== ENCOUNTER → 2018-07-17 | Outpatient (CLI) | payer OTHER ==
--- NOTE | 2018-07-19 08:52 | MM ---
Reason for exam: screening (asymptomatic). Last mammogram was performed 5 years and 7 months ago. History: Patient is postmenopausal. Took hormonal contraceptives for 10 years beginning at age 18. Physical Findings: A clinical breast exam by your physician is recommended on an annual basis and results should be correlated with mammographic findings. MG Screening Mammo w CAD Bilateral CC and MLO view(s) were taken. Prior study comparison: December 20, 2012, bilateral digital screening mammo w/CAD. December 23, 2010, bilateral digital screening mammo w/CAD. There are scattered fibroglandular densities. No significant changes when compared with prior studies. ASSESSMENT: Negative, BI-RAD 1 RECOMMENDATION: Routine screening mammogram of both breasts in 1 year.
== END ==
LOC: RADMAMWWP 15:13
PROVIDERS: ATTEND Internal Medicine
DX: Z12.31 Encounter for screening mammogram for malignant neoplasm of breast (principal)
CPT/HCPCS: 77067

== ENCOUNTER → 2019-10-12 | Outpatient (CLI) | payer MEDICARE ==
--- NOTE | 2019-10-16 08:24 | MM ---
Reason for exam: screening (asymptomatic). Last mammogram was performed 1 year and 3 months ago. History: Patient is postmenopausal. Took hormonal contraceptives for 10 years beginning at age 18. Physical Findings: A clinical breast exam by your physician is recommended on an annual basis and results should be correlated with mammographic findings. MG 3D Screening Mammo W/Cad Bilateral CC, MLO, and XCCL view(s) were taken. Prior study comparison: July 17, 2018, bilateral MG screening mammo w CAD. December 20, 2012, bilateral digital screening mammo w/CAD. There are scattered fibroglandular densities. There is no discrete abnormality. ASSESSMENT: Negative, BI-RAD 1 RECOMMENDATION: Routine screening mammogram of both breasts in 1 year.
== END | disposition home or self-care (01) ==
LOC: RADMAMWWP 13:20
PROVIDERS: ATTEND Internal Medicine
DX: Z12.31 Encounter for screening mammogram for malignant neoplasm of breast (principal)
CPT/HCPCS: 77063; 77067

== ENCOUNTER → 2020-04-22 | Outpatient (CLI) | payer MEDICARE ==
--- NOTE | 2020-04-22 11:47 | USB ---
Reason for exam: clinical finding. History: Patient is postmenopausal. Took hormonal contraceptives for 10 years beginning at age 18. Physical Findings: Nurse did not find any significant physical abnormalities on exam. US Breast RT Technologist: Francine Rod Right complete breast ultrasound includes all four quadrants, the retroareolar region and axilla. Finding demonstrates a 0.6 x 0.4 x 0.4cm vascular lymph node at 9 o'clock. These results were verbally communicated with the patient and result sheet given to the patient on 04/22/20. ASSESSMENT: Negative, BI-RAD 1 RECOMMENDATION: Return to routine screening mammogram schedule for both breasts. Back on schedule for September 2020. Manage patient on a clinical basis.
== END | disposition home or self-care (01) ==
LOC: RADUSWWP 10:53
PROVIDERS: ATTEND Internal Medicine
DX: N63.11 Unspecified lump in the right breast, upper outer quadrant (principal)

== ENCOUNTER → 2020-10-14 | Outpatient (CLI) | payer MEDICARE ==
--- NOTE | 2020-10-15 10:39 | MM ---
Reason for exam: screening (asymptomatic). Last mammogram was performed 1 year ago. History: Patient is postmenopausal. Took hormonal contraceptives for 10 years beginning at age 18. Physical Findings: A clinical breast exam by your physician is recommended on an annual basis and results should be correlated with mammographic findings. MG 3D Screening Mammo W/Cad Bilateral CC and MLO view(s) were taken. Prior study comparison: October 12, 2019, bilateral MG 3d screening mammo w/cad. July 17, 2018, bilateral MG screening mammo w CAD. There are scattered fibroglandular densities. No significant changes when compared with prior studies. ASSESSMENT: Benign, BI-RAD 2 RECOMMENDATION: Routine screening mammogram of both breasts in 1 year.
== END | disposition home or self-care (01) ==
LOC: RADMAMWWP 10:23
PROVIDERS: ATTEND Internal Medicine
DX: Z12.31 Encounter for screening mammogram for malignant neoplasm of breast (principal); Z78.0 Asymptomatic menopausal state
CPT/HCPCS: 77063; 77067

== ENCOUNTER → 2022-03-24 | Outpatient (CLI) | payer MEDICARE ==
--- NOTE | 2022-03-25 13:14 | MM ---
Reason for Exam: Screening (asymptomatic). Last mammogram was performed 1 year(s) and 5 month(s) ago. Patient History: Menarche at age 14. First Full-Term at age 21. Left ovary removed at age 36. Right ovary removed at age 36. Hysterectomy at age 35. Postmenopausal. Patient has history of breast feeding. Hormonal Contraceptives for 10 years from age 18 until age 28. Risk Values: Lesley 5 year model risk: 1.0%. NCI Lifetime model risk: 5.3%. Prior Study Comparison: 12/20/2012 Bilateral Screening Mammogram, [facility]. 07/17/2018 Bilateral Screening Mammogram, [facility]. 10/12/2019 Bilateral Screening Mammogram, [facility]. 04/22/2020 Right Diagnostic Ultrasound, [facility]. 10/14/2020 Bilateral Screening Mammogram, [facility]. Tissue Density: There are scattered fibroglandular densities. Findings: Analyzed By CAD. No significant interval change is evident. No suspicious groups of microcalcifications, spiculated or lobular masses, architectural distortion or other secondary signs of malignancy are mammographically apparent. Overall Assessment: Benign, BI-RAD 2 Management: Screening Mammogram of both breasts in 1 year. A negative mammogram report should not preclude additional follow up of suspicious palpable abnormalities. Patient should continue monthly self breast exam. A clinical breast exam by your physician is recommended on an annual basis and results should be correlated with mammographic findings. Electronically signed and approved by: Mike Ibarra D.O. Radiologis
== END | disposition home or self-care (01) ==
LOC: RADMAMWWP 03-18 15:22
PROVIDERS: ATTEND Internal Medicine
DX: Z12.31 Encounter for screening mammogram for malignant neoplasm of breast (principal); Z78.0 Asymptomatic menopausal state; Z90.721 Acquired absence of ovaries, unilateral
CPT/HCPCS: 77063; 77067

== ENCOUNTER → 2023-03-25 | Outpatient (CLI) | payer MEDICARE ==
--- NOTE | 2023-03-25 11:34 | MM ---
Reason for Exam: Screening (asymptomatic). Last screening mammogram was performed 12 month(s) ago. Patient History: Menarche at age 14. First Full-Term at age 21. Left ovary removed at age 36. Right ovary removed at age 36. Hysterectomy at age 35. Postmenopausal. Patient has history of breast feeding. Hormonal Contraceptives for 10 years from age 18 until age 28. Risk Values: Lesley 5 year model risk: 1.1%. NCI Lifetime model risk: 5.2%. Prior Study Comparison: 10/12/2019 Bilateral Screening Mammogram, [facility]. 10/14/2020 Bilateral Screening Mammogram, [facility]. 03/24/2022 Bilateral MG 3D screening mammo w/cad, [facility]. Tissue Density: There are scattered fibroglandular densities. Findings: Analyzed By CAD. There is no suspicious group of microcalcifications within either breast. No new suspicious mass of the left breast. Round circumscribed 4 mm nodule within the upper outer right breast at middle depth. Overall Assessment: Incomplete: need additional imaging evaluation, BI-RAD 0 Management: Diagnostic Breast Ultrasound of the right breast. A clinical breast exam by your physician is recommended on an annual basis and results should be correlated with mammographic findings. [facility] will attempt to contact patient to return for supplemental views and ultrasound if indicated. Note on Lesley scores and lifetime risk: 1. A Lesley score greater than 3% is considered moderate risk. If this is the case, consider specialist referral to assess eligibility for a risk reducing agent. If overall lifetime risk for the development of breast cancer is 20% or higher, the patient may qualify for future screening with alternating mammogram and breast MRI. Electronically signed and approved by: Evangelist Eugene D.O.
== END | disposition home or self-care (01) ==
LOC: RADMAMWWP 10:44
PROVIDERS: ATTEND Internal Medicine
DX: Z12.31 Encounter for screening mammogram for malignant neoplasm of breast (principal); Z78.0 Asymptomatic menopausal state
CPT/HCPCS: 77063; 77067

== ENCOUNTER → 2023-03-30 | Outpatient (CLI) | payer MEDICARE ==
--- NOTE | 2023-03-30 14:39 | USB ---
Reason for Exam: Additional evaluation requested from abnormal screening. Patient History: Menarche at age 14. First Full-Term at age 21. Left ovary removed at age 36. Right ovary removed at age 36. Hysterectomy at age 35. Postmenopausal. Patient has history of breast feeding. Hormonal Contraceptives for 10 years from age 18 until age 28. Risk Values: Lesley 5 year model risk: 1.1%. NCI Lifetime model risk: 5.2%. Technique: Method: Targeted. Prior Study Comparison: 10/14/2020 Bilateral Screening Mammogram, [facility]. 03/24/2022 Bilateral MG 3D screening mammo w/cad, [facility]. 03/25/2023 Bilateral MG 3D screening mammo w/cad, [facility]. Findings: The upper outer quadrant of the right breast, the axilla of the right breast and the retroareolar of the right breast were scanned. Electronically signed and approved by: Mike Ibarra D.O. Radiologis
== END | disposition home or self-care (01) ==
LOC: RADUSWWP 12:44
PROVIDERS: ATTEND Internal Medicine
DX: R92.8 Other abnormal and inconclusive findings on diagnostic imaging of breast (principal); Z78.0 Asymptomatic menopausal state

== ENCOUNTER → 2023-10-14 | Outpatient (CLI) | payer MEDICARE ==
--- NOTE | 2023-10-14 17:32 | MM ---
Reason for Exam: Follow-up at short interval from prior study. Last screening mammogram was performed 6 month(s) ago. Patient History: Menarche at age 14. First Full-Term at age 21. Left ovary removed at age 36. Right ovary removed at age 36. Hysterectomy at age 35. Postmenopausal. Patient has history of breast feeding. Hormonal Contraceptives for 10 years from age 18 until age 28. Risk Values: Lesley 5 year model risk: 1.1%. NCI Lifetime model risk: 5.2%. Prior Study Comparison: 10/14/2020 Bilateral Screening Mammogram, [facility]. 03/24/2022 Bilateral MG 3D screening mammo w/cad, [facility]. 03/25/2023 Bilateral MG 3D screening mammo w/cad, [facility]. Tissue Density: Right: There are scattered areas of fibroglandular density. Findings: Analyzed By CAD. There is a new 0.6 cm hypodensity area outer aspect right breast 14 cm from nipple. Additional evaluation with ultrasound is recommended. Overall Assessment: Incomplete: need additional imaging evaluation, BI-RAD 0 Management: Diagnostic Breast Ultrasound of the right breast. A negative mammogram report should not preclude additional follow up of suspicious palpable abnormalities. Patient should continue monthly self breast exam. A clinical breast exam by your physician is recommended on an annual basis and results should be correlated with mammographic findings. Note on Lesley scores and lifetime risk: 1. A Lesley score greater than 3% is considered moderate risk. If this is the case, consider specialist referral to assess eligibility for a risk reducing agent. 2. If overall lifetime risk for the development of breast cancer is 20% or higher, the patient may qualify for future screening with alternating mammogram and breast MRI. Electronically signed and approved by: Mike Ibarra D.O. Radiologis
== END | disposition home or self-care (01) ==
LOC: RADMAMWWP 07:51
PROVIDERS: ATTEND Internal Medicine
DX: R92.321 Mammographic fibroglandular density, right breast (principal); Z78.0 Asymptomatic menopausal state
CPT/HCPCS: 77065; G0279; 77061

== ENCOUNTER → 2023-10-18 | Outpatient (CLI) | payer MEDICARE ==
--- NOTE | 2023-10-18 09:18 | USB ---
Reason for Exam: Additional evaluation requested from prior study. Patient History: Menarche at age 14. First Full-Term at age 21. Left ovary removed at age 36. Right ovary removed at age 36. Hysterectomy at age 35. Postmenopausal. Patient has history of breast feeding. Hormonal Contraceptives for 10 years from age 18 until age 28. Risk Values: Lesley 5 year model risk: 1.1%. NCI Lifetime model risk: 5.2%. Technique: Method: Targeted. Prior Study Comparison: 03/24/2022 Bilateral MG 3D screening mammo w/cad, [facility]. 03/25/2023 Bilateral MG 3D screening mammo w/cad, [facility]. 10/14/2023 Right MG 3D diag mammo w/cad RT, [facility]. Findings: The lateral section of the breast of the right breast, the axilla of the right breast and the retroareolar of the right breast were scanned. Targeted ultrasound 10:00 position peripherally in the breast, 15 cm from the nipple. A benign 5 x 5 x 4 mm intramammary or low axillary tail lymph node is demonstrated, mammographic correlate and benign. No other solid or cystic lesion. Overall Assessment: Benign, BI-RAD 2 Management: Screening Mammogram of both breasts in 6 months. Back on schedule. A clinical breast exam by your physician is recommended on an annual basis and results should be correlated with mammographic findings. This exam should not preclude additional follow-up of suspicious palpable abnormalities. Results were given to the patient verbally at the time of exam. Electronically signed and approved by: Fei Nice M.D. Radiologist
== END | disposition home or self-care (01) ==
LOC: RADUSWWP 08:51
PROVIDERS: ATTEND Internal Medicine
DX: R92.8 Other abnormal and inconclusive findings on diagnostic imaging of breast (principal); Z78.0 Asymptomatic menopausal state

== ENCOUNTER 2024-04-04 10:08 | Day surgery (SDC) | payer MEDICARE ==
[2024-04-03 12:12] VITALS: BMI 39.8
[2024-04-04] MEDS: IV FLUID CONTINUATION 1,000 ML IV ONE (10:39)
[2024-04-04 10:44] VITALS: TEMP 97.8
[2024-04-04] MEDS: LACTATED RINGERS 1,000 ML IV SCH (10:48)
[2024-04-04] MEDS ORDERED: PROPOFOL 10 MG/ML 20 ML VIAL IV ONE (11:39)
--- NOTE | 2024-04-04 12:08 | P.PCN ---
Date of Procedure: 04/04/24 Procedure(s) Performed: BRIEF HISTORY: Patient is a 64-year-old pleasant white female scheduled for an elective colonoscopy as a part of evaluation by history of colon polyps. Lately has been having intermittent lower abdominal pain. PROCEDURE PERFORMED: Colonoscopy. PREOPERATIVE DIAGNOSIS: History of colon polyps/lower abdominal pain. IV sedation per Anesthesia. PROCEDURE: After informed consent was obtained, the patient, was brought into the endoscopy unit. IV sedation was administered by Anesthesia under continuous monitoring. Digital rectal examination was normal. Initially the Olympus CF-160 flexible video colonoscope was then inserted in the rectum, gradually advanced into the sigmoid colon and further advancement was not possible. The scope was removed and a pediatric colonoscopy was then introduced into the rectum and gently advanced into the cecum with mild to moderate difficulty. Careful examination was performed as the scope was gradually being withdrawn. Ileocecal valve and the appendiceal orifice were visualized and appeared normal. Prep was excellent. Mucosa of the cecum, ascending colon, transverse colon, descending colon, appeared normal. The sigmoid colon at 30 cm from the anal verge there were 3 polyps measuring between 7 mm to 1 cm in size all of which were removed by snare polypectomy. In the rectosigmoid colon there were 4 polyps measuring between 5 to 6 mm in size removed by snare polypectomy. Scattered left-sided diverticulosis seen. Rest of the sigmoid colon, and rectum appeared normal. Retroflexion was performed in the rectum and grade 2 internal hemorrhoid were seen. The patient tolerated the procedure well. IMPRESSION: 3 polyps in the distal sigmoid colon measuring between 7 mm to 1 cm size removed by snare polypectomy 4 polyps in the rectosigmoid colon measuring between 5 to 6 mm and s/p polypectomy Scattered white, diverticulosis Grade 2 internal hemorrhoids RECOMMENDATIONS: Findings of this examination were discussed with the patient as well as her family. She was advised to follow-up with the biopsy results. If the biopsy reveals adenoma she can have repeat colonoscopy in 3 years..
[2024-04-04 12:15] VITALS: RESP 14
[2024-04-04 12:33] VITALS: BP 122/74; PULSE 76
== END 2024-04-04 12:51 | disposition home or self-care (01) ==
LOC: ORWHC2ENDO 10:08
PROVIDERS: ATTEND Internal Medicine Gastroenterology
DX: Z12.11 Encounter for screening for malignant neoplasm of colon (principal); K64.1 Second degree hemorrhoids; K63.5 Polyp of colon; K62.1 Rectal polyp; E78.5 Hyperlipidemia, unspecified; J45.909 Unspecified asthma, uncomplicated; M19.90 Unspecified osteoarthritis, unspecified site; F41.9 Anxiety disorder, unspecified; F32.A Depression, unspecified; K21.9 Gastro-esophageal reflux disease without esophagitis; F12.90 Cannabis use, unspecified, uncomplicated; Z86.0100 Personal history of colon polyps, unspecified; Z79.51 Long term (current) use of inhaled steroids; Z79.899 Other long term (current) drug therapy; Z98.890 Other specified postprocedural states
CPT/HCPCS: 88305; 45385; J2704

== ENCOUNTER → 2024-08-21 | Outpatient (CLI) | payer MEDICARE ==
--- NOTE | 2024-08-21 09:17 | MM ---
Reason for Exam: Screening (asymptomatic). Last mammogram was performed 1 year(s) and 5 month(s) ago. Patient History: Menarche at age 14. First Full-Term at age 21. Left ovary removed at age 36. Right ovary removed at age 36. Hysterectomy at age 35. Postmenopausal. Patient has history of breast feeding. Hormonal Contraceptives for 10 years from age 18 until age 28. Risk Values: Lesley 5 year model risk: 1.1%. NCI Lifetime model risk: 5.0%. Prior Study Comparison: 03/24/2022 Bilateral MG 3D screening mammo w/cad, [facility]. 03/25/2023 Bilateral MG 3D screening mammo w/cad, [facility]. 10/14/2023 Right MG 3D diag mammo w/cad RT, [facility]. Tissue Density: There are scattered areas of fibroglandular density. Findings: Analyzed By CAD. Low axillary tail lymph node unchanged on the right. There is no suspicious group of microcalcifications or new suspicious mass in either breast. Overall Assessment: Benign, BI-RAD 2 Management: Screening Mammogram of both breasts in 1 year. Patient should continue monthly self-breast exams. A clinical breast exam by your physician is recommended on an annual basis. This exam should not preclude additional follow-up of suspicious palpable abnormalities. Note on Lesley scores and lifetime risk: 1. A Lesley score greater than 3% is considered moderate risk. If this is the case, consider specialist referral to assess eligibility for a risk reducing agent. 2. If overall lifetime risk for the development of breast cancer is 20% or higher, the patient may qualify for future screening with alternating mammogram and breast MRI. [facility], , 08/21/2024 9:14 AM. Electronically signed and approved by: Fei Nice M.D. Radiologist
== END | disposition home or self-care (01) ==
LOC: RADMAMWWP 06:57
PROVIDERS: ATTEND Internal Medicine
DX: Z12.31 Encounter for screening mammogram for malignant neoplasm of breast (principal); R92.323 Mammographic fibroglandular density, bilateral breasts; Z78.0 Asymptomatic menopausal state; Z92.0 Personal history of contraception
CPT/HCPCS: 77063; 77067